=== PATIENT | male | born 1975 | race Caucasian/White ===

== ENCOUNTER 2017-02-15 21:53 | Emergency (ER) | payer OTHER | END 2017-02-16 00:08 | disposition home or self-care (01) | LOC: FER 21:53 | DX: S06.0X9A Concussion with loss of consciousness of unspecified duration, initial encounter (principal); S01.91XA Laceration without foreign body of unspecified part of head, initial encounter; Z21 Asymptomatic human immunodeficiency virus [HIV] infection status; Z88.1 Allergy status to other antibiotic agents; Z79.899 Other long term (current) drug therapy; W22.8XXA Striking against or struck by other objects, initial encounter; Y92.009 Unspecified place in unspecified non-institutional (private) residence as the place of occurrence of the external cause | CPT/HCPCS: 70450; 72125; 73110; J1885 ==

== ENCOUNTER 2021-01-01 13:26 | Emergency (ER) | payer MEDICARE ==
[~2021-01-01 13:26] MED LIST: ASPIRIN CHEWABL81 MG PO; AUGMENTIN 500-1 EACH PO; BACTRIM DS TAB1 EACH PO; CARAFATE1 GM PO; CYMBALTA 30MG C30 MG PO; MOTRIN600 MG PO; OXYCODONE-ACET1 EACH PO; PANTOPRAZOLE SO40 MG PO; PERCOCET 10-321 EACH PO; PRILOSEC20 MG PO; TRIUMEQ TABLET1 EACH PO; VISTARIL50 MG PO; [UNRECOGNIZED DRUG - OTHER]
[2021-01-01 15:08] LABS: BASOPHIL 0.4 % (0-2); EOSINOPHIL 2.1 % (0-5); HCT 40.6 % (42.0-52.0); HGB 13.5 g/dl (13.2-18.0); LYMPHOCYTE 28.6 % (15-48); MCH 28.6 pg (25.0-31.0); MCHC 33.3 g/dL (32.0-36.0); MONOCYTE 10.9 % (0-12); NRBC 0; PLT 221 K/uL (150-400); RBC 4.72 M/uL (4.70-6.00); RDW 13.6 % (11.5-14.0); WBC 5.2 K/uL (4.0-10.5)
[2021-01-01 15:19] LABS: INR 1.01 (0.9-1.2); PROTHROMBIN TIME 12.6 SECONDS (11.4-13.6); PTT 34.7 SECONDS (22.2-34.7)
[2021-01-01 15:28] LABS: ALBUMIN 3.9 g/dL (3.4-5.0); BILIRUBIN - TOTAL 0.6 mg/dL (0.2-1.0); GLOBULIN (CALCULATION) 4.3 g/dL; POTASSIUM 4.5 mmol/L (3.5-5.1); TOTAL PROTEIN 8.2 g/dL (6.4-8.2)
== END 2021-01-01 18:32 | disposition home or self-care (01) ==
LOC: FER 13:26
PROVIDERS: Emergency Medicine
DX: R07.89 Other chest pain (principal); Z21 Asymptomatic human immunodeficiency virus [HIV] infection status
CPT/HCPCS: 36415; 71045; 80053; 84484; 85025; 85610; 85730; 93005